=== PATIENT | male | born 1990 | race Caucasian/White ===

== ENCOUNTER 2021-12-24 17:03 | Emergency (ER) | payer BC ==
[~2021-12-24] VITALS: Ht 190.5 cm; Wt 74.8 kg
[2021-12-24] MEDS ORDERED: PREDNISONE20 MG PO (19:46)
== END 2021-12-24 20:02 | disposition home or self-care (01) ==
LOC: ED 17:03
DX: L30.9 Dermatitis, unspecified (principal)
CPT/HCPCS: 96372; 99282; J1100